=== PATIENT | female | born 1950 | race Caucasian/White ===

== ENCOUNTER 2017-03-23 19:28 | Inpatient (IN) ==
[2017-03-23] MEDS ORDERED: ACETAMINOPHEN 325 MG TABLET PO PRN (21:38)
[2017-03-23] MEDS ORDERED: ALUMINUM/MAGNES/SIMETH MAX STR 30 ML UDCUP PO PRN (21:38)
[2017-03-23 21:53] LABS: Basophils % 0.1 % (0.0-0.8); Hematocrit 37.3 VOL% (35.7-47.0); Hemoglobin 12.1 GM/DL (12.0-16.0); Immature Granulocytes % 0.3 %; Immature Granulocytes Absolute 0.03 #; Lymphocytes # 0.7 10*3/uL (1.4-4.0); Lymphocytes % 5.8 % (21.3-54.2); Mean Corpuscular HGB Conc 32.4 GM/DL (32-36); Mean Corpuscular Hemoglobin 30 PG (27-34); Mean Corpuscular Volume 93.3 FL (87-102); Mean Platelet Volume 10.1 FL (9.6-12.0); Monocytes # 0.8 10*3/uL (0.11-0.8); Monocytes % 7.5 % (1.7-12.7); Neutrophils # 9.7 10*3/uL (1.4-7.4); Neutrophils % 86.3 % (38.7-73.9); Platelet Count 239 T/CUMM (130-400); Red Cell Distribution Width 14.6 % (9.3-17.3); White Blood Count 11.2 T/CUMM (4-12)
[2017-03-23 22:15] LABS: Calcium 8.5 MG/DL (8.5-10.1); Osmolality,Calculated 284.4 MOS/KG (273-304); Potassium 3.8 MMOL/L (3.5-5.1)
[2017-03-24] MEDS: HYDROmorphone 2 MG/1 ML VIAL IV PRN ×2 (00:47→07:40)
[2017-03-24] MEDS: DEXTROSE 5% NACL 0.45% 1,000 ML IV SCH ×4 (00:52→23:33)
[2017-03-24 01:29] LABS: Ovalocytes 1+; Platelet Estimate Normal
[2017-03-24 05:53] LABS: Basophils % 0.2 % (0.0-0.8); Eosinophils % 0.1 % (0.00-10.9); Hematocrit 33.3 VOL% (35.7-47.0); Hemoglobin 10.6 GM/DL (12.0-16.0); Immature Granulocytes % 0.2 %; Immature Granulocytes Absolute 0.02 #; Lymphocytes # 0.9 10*3/uL (1.4-4.0); Lymphocytes % 9.7 % (21.3-54.2); Mean Corpuscular HGB Conc 31.8 GM/DL (32-36); Mean Corpuscular Hemoglobin 30 PG (27-34); Mean Corpuscular Volume 94.9 FL (87-102); Mean Platelet Volume 11.4 FL (9.6-12.0); Monocytes # 0.5 10*3/uL (0.11-0.8); Monocytes % 5.9 % (1.7-12.7); Neutrophils # 7.4 10*3/uL (1.4-7.4); Neutrophils % 83.9 % (38.7-73.9); Platelet Count 211 T/CUMM (130-400); Red Blood Count 3.51 MC/CUMM (3.8-5.5); Red Cell Distribution Width 14.6 % (9.3-17.3); White Blood Count 8.9 T/CUMM (4-12)
[2017-03-24 06:21] LABS: Apearance,Urine CLEAR (Clear); Bacteria,Urine Occasional /HPF (Few); Bilirubin,Urine Negative (Negative); Blood, Urine Small mg/dL (Negative); Glucose,Urine (UA) 150 mg/dL (Negative); Ketones,Urine Negative (Negative); Mucus,Urine Occasional /LPF (Occasional); Nitrite,Urine Negative (Negative); Protein,Urine Negative; RBC,Urine 2 /HPF (0-4); Squamous Epithelial Cell,Urine Occasional /HPF (0-10); Urine Color Yellow (Yellow); Urine Specific Gravity 1.018 (1.001-1.035); Urine Urobilinogen < 2.0 EU/DL (0.2-1.0); WBC,Urine 3 /HPF (0-6)
[2017-03-24 06:45] LABS: Calcium 8.3 MG/DL (8.5-10.1); Osmolality,Calculated 285.3 MOS/KG (273-304); Potassium 3.6 MMOL/L (3.5-5.1)
[2017-03-24] MEDS: ONDANSETRON 4 MG/2 ML VIAL IV PRN (07:40)
[2017-03-24] MEDS ORDERED: NON-FORMULARY MEDICATION (Esomeprazole Magnesium [Esomeprazole] 40 MG) PO SCH (09:00)
[2017-03-24] MEDS: rOPINIRole 0.25 MG TABLET PO SCH (09:50)
[2017-03-24] MEDS: ASPIRIN EC 81 MG TABLET PO SCH (09:50)
[2017-03-24] MEDS: DOCUSATE SODIUM 100 MG CAPSULE PO SCH ×2 (09:50→21:48)
[2017-03-24] MEDS: DULoxetine 30 MG CAPSULE PO SCH (09:50)
[2017-03-24] MEDS: PANTOPRAZOLE 40 MG TABLET PO SCH (10:22)
[2017-03-24] MEDS: TOPIRAMATE 25 MG TABLET PO SCH ×2 (10:23→21:49)
[2017-03-24] MEDS ORDERED: BUPIVACAINE 0.25% /EPI 10 ML VIAL ONE (13:07)
[2017-03-24] MEDS ORDERED: DEXAMETHASONE 4 MG/1 ML VIAL ONE (13:07)
[2017-03-24] MEDS ORDERED: ceFAZolin 1,000 MG VIAL ONE (14:18)
[2017-03-24] MEDS ORDERED: fentaNYL 100 MCG/2 ML VIAL ONE (15:05)
[2017-03-24] MEDS ORDERED: PROPOFOL 200 MG/20 ML VIAL IV ONE (15:05)
[2017-03-24] MEDS ORDERED: MIDAZOLAM 2 MG/2 ML VIAL ONE (15:05)
[2017-03-24] MEDS ORDERED: SODIUM CHLORIDE 0.9% 200 ML IV ONE (15:06)
[2017-03-24] MEDS ORDERED: ONDANSETRON 4 MG/2 ML VIAL ONE (15:06)
[2017-03-24] MEDS ORDERED: KETAMINE 500 MG/10 ML VIAL ONE (15:15)
[2017-03-24] MEDS: NEBIVOLOL 5 MG TABLET PO SCH (21:48)
[2017-03-25] MEDS: DEXTROSE 5% NACL 0.45% 1,000 ML IV SCH ×5 (01:15→19:21)
[2017-03-25 06:30] LABS: Basophils % 0.2 % (0.0-0.8); Eosinophils % 0.1 % (0.00-10.9); Hematocrit 28.2 VOL% (35.7-47.0); Immature Granulocytes % 0.3 %; Immature Granulocytes Absolute 0.03 #; Lymphocytes # 1.4 10*3/uL (1.4-4.0); Lymphocytes % 15.8 % (21.3-54.2); Mean Corpuscular HGB Conc 31.9 GM/DL (32-36); Mean Corpuscular Hemoglobin 30 PG (27-34); Mean Platelet Volume 10.7 FL (9.6-12.0); Monocytes # 0.7 10*3/uL (0.11-0.8); Monocytes % 8.2 % (1.7-12.7); Neutrophils # 6.5 10*3/uL (1.4-7.4); Neutrophils % 75.4 % (38.7-73.9); Platelet Count 195 T/CUMM (130-400); Red Cell Distribution Width 14.6 % (9.3-17.3); White Blood Count 8.7 T/CUMM (4-12)
[2017-03-25 07:08] LABS: Albumin 2.8 G/DL (3.4-5.0); Bilirubin,Total 0.5 MG/DL (0.2-1.0); Calcium 8.3 MG/DL (8.5-10.1); Osmolality,Calculated 284.8 MOS/KG (273-304); Total Protein 5.6 G/DL (6.4-8.3)
[2017-03-25] MEDS: DOCUSATE SODIUM 100 MG CAPSULE PO SCH ×2 (11:11→20:51)
[2017-03-25] MEDS: TOPIRAMATE 25 MG TABLET PO SCH ×2 (11:11→20:51)
[2017-03-25] MEDS: PANTOPRAZOLE 40 MG TABLET PO SCH (11:11)
[2017-03-25] MEDS: rOPINIRole 0.25 MG TABLET PO SCH (11:12)
[2017-03-25] MEDS: ASPIRIN EC 81 MG TABLET PO SCH (11:13)
[2017-03-25] MEDS: DULoxetine 30 MG CAPSULE PO SCH (11:14)
[2017-03-25] MEDS: HYDROmorphone 2 MG/1 ML VIAL IV PRN ×2 (11:21→19:22)
[2017-03-25] MEDS: ONDANSETRON 4 MG/2 ML VIAL IV PRN (20:48)
[2017-03-25] MEDS: NEBIVOLOL 5 MG TABLET PO SCH (20:51)
[2017-03-26] MEDS: DEXTROSE 5% NACL 0.45% 1,000 ML IV SCH ×5 (00:07→19:28)
[2017-03-26] MEDS: PANTOPRAZOLE 40 MG TABLET PO SCH (08:58)
[2017-03-26] MEDS: TOPIRAMATE 25 MG TABLET PO SCH ×2 (08:58→20:32)
[2017-03-26] MEDS: DOCUSATE SODIUM 100 MG CAPSULE PO SCH ×2 (08:58→20:31)
[2017-03-26] MEDS: rOPINIRole 0.25 MG TABLET PO SCH (08:58)
[2017-03-26] MEDS: DULoxetine 30 MG CAPSULE PO SCH (08:58)
[2017-03-26] MEDS: ASPIRIN EC 81 MG TABLET PO SCH (08:59)
[2017-03-26] MEDS: HYDROmorphone 2 MG/1 ML VIAL IV PRN ×2 (10:26→17:10)
[2017-03-26] MEDS: NEBIVOLOL 5 MG TABLET PO SCH (20:34)
[2017-03-27] MEDS: DEXTROSE 5% NACL 0.45% 1,000 ML IV SCH ×3 (05:36→19:18)
[2017-03-27] MEDS: DOCUSATE SODIUM 100 MG CAPSULE PO SCH ×2 (08:44→20:16)
[2017-03-27] MEDS: rOPINIRole 0.25 MG TABLET PO SCH (08:44)
[2017-03-27] MEDS: TOPIRAMATE 25 MG TABLET PO SCH ×2 (08:45→20:16)
[2017-03-27] MEDS: ASPIRIN EC 81 MG TABLET PO SCH (08:45)
[2017-03-27] MEDS: PANTOPRAZOLE 40 MG TABLET PO SCH (08:45)
[2017-03-27] MEDS: DULoxetine 30 MG CAPSULE PO SCH (08:45)
[2017-03-27] MEDS: NEBIVOLOL 5 MG TABLET PO SCH (20:16)
[2017-03-28] MEDS: DEXTROSE 5% NACL 0.45% 1,000 ML IV SCH ×3 (03:22→21:02)
[2017-03-28 05:06] LABS: Basophils % 0.4 % (0.0-0.8); Eosinophils # 0.2 10*3/uL (0.0-0.87); Hematocrit 24.6 VOL% (35.7-47.0); Hemoglobin 8.1 GM/DL (12.0-16.0); Immature Granulocytes % 0.4 %; Immature Granulocytes Absolute 0.02 #; Lymphocytes # 0.9 10*3/uL (1.4-4.0); Lymphocytes % 19.9 % (21.3-54.2); Mean Corpuscular HGB Conc 32.9 GM/DL (32-36); Mean Corpuscular Hemoglobin 31 PG (27-34); Mean Corpuscular Volume 93.5 FL (87-102); Mean Platelet Volume 11.2 FL (9.6-12.0); Monocytes # 0.4 10*3/uL (0.11-0.8); Monocytes % 9.8 % (1.7-12.7); NRBC # 0.04 10*3/uL; Neutrophils # 2.9 10*3/uL (1.4-7.4); Neutrophils % 65.5 % (38.7-73.9); Platelet Count 193 T/CUMM (130-400); Red Blood Count 2.63 MC/CUMM (3.8-5.5); Red Cell Distribution Width 14.3 % (9.3-17.3); White Blood Count 4.5 T/CUMM (4-12)
[2017-03-28 05:07] LABS: Calcium 7.9 MG/DL (8.5-10.1); Magnesium 2.2 MG/DL (1.8-2.4); Potassium 3.3 MMOL/L (3.5-5.1)
[2017-03-28] MEDS: TOPIRAMATE 25 MG TABLET PO SCH ×2 (10:36→21:02)
[2017-03-28] MEDS: DOCUSATE SODIUM 100 MG CAPSULE PO SCH ×2 (10:36→21:02)
[2017-03-28] MEDS: rOPINIRole 0.25 MG TABLET PO SCH (10:37)
[2017-03-28] MEDS: PANTOPRAZOLE 40 MG TABLET PO SCH (10:39)
[2017-03-28] MEDS: ASPIRIN EC 81 MG TABLET PO SCH (10:39)
[2017-03-28] MEDS: DULoxetine 30 MG CAPSULE PO SCH (10:39)
[2017-03-28] MEDS ORDERED: MAGNESIUM HYDROXIDE SUSP 30 ML UDCUP PO PRN (20:12)
[2017-03-28] MEDS: NEBIVOLOL 5 MG TABLET PO SCH (21:02)
[2017-03-29] MEDS: DEXTROSE 5% NACL 0.45% 1,000 ML IV SCH (05:06)
[2017-03-29] MEDS: DULoxetine 30 MG CAPSULE PO SCH (09:48)
[2017-03-29] MEDS: rOPINIRole 0.25 MG TABLET PO SCH (09:49)
[2017-03-29] MEDS: PANTOPRAZOLE 40 MG TABLET PO SCH (09:50)
[2017-03-29] MEDS: ASPIRIN EC 81 MG TABLET PO SCH (09:50)
[2017-03-29] MEDS: TOPIRAMATE 25 MG TABLET PO SCH (09:51)
[2017-03-29] MEDS: DOCUSATE SODIUM 100 MG CAPSULE PO SCH ×2 (09:51→11:04)
[2017-03-29 12:20] VITALS: BP 112/68
== END 2017-03-29 12:42 | disposition swing bed (61) | DRG 511 ==
LOC: N.ED 19:28 → N.EDINP 21:38 → N.3E 22:15
PROVIDERS: ADMIT Specialist; ATTEND Specialist